=== PATIENT | male | born 1995 | race African-American/Black ===

== ENCOUNTER 2017-09-11 12:05 | Emergency (ER) | payer OTHER ==
[~2017-09-11] VITALS: Ht 177.8 cm; Wt 68.0 kg
[2017-09-11] MEDS ORDERED: FLEXERIL PO (12:53)
== END 2017-09-11 13:04 | disposition home or self-care (01) ==
LOC: ER 12:05
DX: M25.522 Pain in left elbow (principal); M54.5 Low back pain; V49.49XA Driver injured in collision with other motor vehicles in traffic accident, initial encounter; Y93.89 Activity, other specified; Y92.89 Other specified places as the place of occurrence of the external cause; Y99.8 Other external cause status